=== PATIENT | male | born 1935 | race Caucasian/White ===

== ENCOUNTER 2016-12-13 07:46 | Emergency (ER) | payer MEDICARE, BC ==
[2016-12-13] MEDS ORDERED: HYDROmorphone 2 MG/ML SDV IVPUSH ONE (07:51)
--- NOTE | 2016-12-13 07:59 | EDM.PDOC ---
ED HPI Trauma - General Chief Complaint: Lower Extremity Injury/Pain Stated Complaint: LEFT HIP Time Seen by Provider: 12/13/16 07:50 Source: Reports: Patient, Family History Limitations: Reports: No limitations - History of Present Illness INITIAL COMMENTS - FREE TEXT/NARRATIVE: 81 yo male fell from a standing height this morning injuring his left hip. He was able to get up and walk a short distance with his walker with the assistance of his to a chair. After this he was not able again to move the left leg. Arrives via EMS. No other injuries in this fall. Complains now of left hip pain. Symptom Onset Date: 12/13/16 Symptom Onset Time: 06:00 Occurred When: just prior to arrival, this morning Occurred Where: home Method of Injury: fall Severity: moderate Pain/Injury Location: Reports: lower extremity, left Consciousness: Reports: no loss of consciousness Associated Symptoms: Reports: denies other symptoms Allergies/ADRs: Allergies No Known Allergies Allergy (Verified 12/13/16 08:10) Home Medications: Ambulatory Orders Amoxicillin [Amoxil] 4 cap PO ASDIRECTED 11/13/13 [Confirmed 11/13/13] Aspirin [Ecotrin] 81 mg PO DAILY 11/13/13 [Confirmed 11/13/13] Ciclopirox 1 applic TOP ASDIRECTED 11/13/13 [Confirmed 11/13/13] Hydrochlorothiazide 25 mg PO DAILY 11/13/13 [Confirmed 11/13/13] Ichthammol 1 gm MC ASDIRECTED 11/13/13 [Confirmed 11/13/13] Levothyroxine [Levothroid] 137 mcg PO DAILY 11/13/13 [Confirmed 11/13/13] Multivitamin with Minerals [Multiple Vitamin] 1 tab PO DAILY 11/13/13 [ Confirmed 11/13/13] Propylene Glycol/Peg 400 [Systane 0.3-0.4% Eye Drops] 10 ml EYERT Q4H PRN [Confirmed 11/13/13] amLODIPine Besylate [Amlodipine Besylate] 1 tab PO DAILY 11/13/13 [Confirmed 07/19] Past Medical History HEENT History: Reports: Impaired vision Cardiovascular History: Reports: Hypertension Musculoskeletal History: Reports: Arthritis Endocrine/Metabolic History: Reports: Hypothyroidism Social & Family History - Family History Family Medical History: Noncontributory - Tobacco Use Smoking Status *Q: Never Smoker - Caffeine Use Caffeine Use: Reports: Coffee, Soda, Tea - Recreational Drug Use Recreational Drug Use: No Review of Systems - Review of Systems Review Of Systems: See Below Constitutional: Reports: no symptoms Eyes: Reports: no symptoms Ears: Reports: no symptoms Nose: Reports: no symptoms Mouth/Throat: Reports: other (complains of dry mouth.) Respiratory: Reports: No Symptoms Cardiovascular: Reports: no symptoms GI/Abdominal: Reports: No symptoms Genitourinary: Reports: no symptoms Musculoskeletal: Reports: joint pain (Left hip) Skin: Reports: no symptoms Neurological: Reports: No Symptoms Psychiatric: Reports: no symptoms Trauma Exam - Physical Exam Exam: See Below Exam Limited By: No limitations General Appearance: Reports: alert, WD/WN, no apparent distress Head: Reports: atraumatic, normocephalic Eyes: bilateral eye: normal inspection, PERRL Ears: Reports: normal external exam, normal canal, hearing grossly normal Nose: Reports: normal inspection, normal mucousa, no blood Throat/Mouth: Reports: Normal inspection, Normal lips, Normal teeth, Normal oropharynx, Normal voice, No airway compromise Neck: Reports: non-tender, full range of motion, normal alignment, normal inspection Respiratory Exam: Reports: no respiratory distress, lungs clear, normal breath sounds, no accessory muscle use Cardiovascular: Reports: regular rate, rhythm, no edema GI/Abdominal: Reports: normal bowel sounds, soft, non tender Back: Reports: normal inspection Extremities: Reports: non-tender, pain with movement (Left hip), tenderness, unable to bear weight Neurologic: Reports: prosthetic assistant II-XII nml as tested, no motor/sensory deficits, alert , normal mood/affect, oriented x 3 Skin: Reports: Normal color, Warm/dry Course - Vital Signs Text/Narrative:: LR IV @ 125 ml/h, Dilaudid 0.5 mg IV L hip X-ray-neck fx Dr. Garcia accepting at [place], [place]. EMS transfer. Last Recorded V/S: Last Vital Signs Temp 36.7 C 12/13/16 07:35 Pulse 75 12/13/16 07:35 Resp 16 12/13/16 07:35 BP 173/87 H 12/13/16 07:35 Pulse Ox 100 12/13/16 07:35 - Orders/Labs/Meds Orders: Active Orders 24 hr Category Date Time Status Hip Min 2V or 3V w Pelvis Lt [CR] Stat Exams 12/13/16 07:52 Taken UA W/MICROSCOPIC [URIN] Stat Lab 12/13/16 08:54 Uncollected Lactated Ringers [Ringers, Lactated] 1,000 ml Med 12/13/16 08:00 Active IV ASDIRECTED Medication Orders Lactated Ringer's (Ringers, Lactated) 1,000 mls @ 125 mls/hr IV ASDIRECTED JONI Meds: Medications Generic Name Dose Route Start Last Admin Trade Name Freq PRN Reason Stop Dose Admin Lactated Ringer's 1,000 mls @ 125 mls/hr 12/13/16 08:00 Ringers, Lactated IV ASDIRECTED JONI Discontinued Medications Generic Name Dose Route Start Last Admin Trade Name Freq PRN Reason Stop Dose Admin Hydromorphone HCl 0.5 mg 12/13/16 07:51 12/13/16 08:21 Dilaudid IVPUSH 12/13/16 07:52 0.5 mg ONETIME ONE Administration Departure - Departure Time of Disposition: 09:20 Disposition: DC/Tfer to Acute Hospital 02 Condition: good Clinical Impression: Fracture of neck of femur, hip Hypertension Qualifiers: Hypertension type: essential hypertension Qualified Code(s): I10 - Essential ( primary) hypertension Referrals: Tobias Smith MD [Primary Care Provider] - Forms: ED Department Discharge - My Orders Last 24 Hours: My Active Orders 12/13/16 07:52 Hip Min 2V or 3V w Pelvis Lt [CR] Stat 12/13/16 08:00 Lactated Ringers [Ringers, Lactated] 1,000 ml IV ASDIRECTED 12/13/16 08:54 UA W/MICROSCOPIC [URIN] Stat - Assessment/Plan Last 24 Hours: My Active Orders 12/13/16 07:52 Hip Min 2V or 3V w Pelvis Lt [CR] Stat 12/13/16 08:00 Lactated Ringers [Ringers, Lactated] 1,000 ml IV ASDIRECTED 12/13/16 08:54 UA W/MICROSCOPIC [URIN] Stat
[2016-12-13] MEDS ORDERED: Lactated Ringers 1,000 ML IV SCH (08:00)
[2016-12-13 10:40] VITALS: BP 156/72
--- NOTE | 2016-12-13 16:30 | CR ---
INDICATION: Fell with pain. LEFT HIP WITH PELVIS: Frontal view of the pelvis with AP and two lateral views of the left hip revealed a comminuted fracture of the femoral neck with anterior angulation of mild to moderate degree at the fracture site. Somewhat diminished bone density is noted which may be on the basis of osteomalacia or osteoporosis and should be correlated clinically. The left hip joint itself was intact in appearance. The right hip joint showed some mild degenerative changes and minimal cranial lateral joint space loss. Mild degenerative changes are also noted at the right sacroiliac joint, minimal on the left. IMPRESSION: 1. Femoral neck fracture on the left with mild to moderate deformity. 2. Minimal degenerative changes right hip joint. MTDD
== END 2016-12-13 09:35 ==
LOC: FB.ED 07:46
DX: S72.002A Fracture of unspecified part of neck of left femur, initial encounter for closed fracture (principal); I10 Essential (primary) hypertension; E03.9 Hypothyroidism, unspecified; Z79.82 Long term (current) use of aspirin; Z79.899 Other long term (current) drug therapy; W18.30XA Fall on same level, unspecified, initial encounter
CPT/HCPCS: 73502; 81001; 96361; 96374; 99284; J1170; J7120; 99285

== ENCOUNTER 2016-12-16 07:55 | Inpatient (IN) | payer MEDICARE, BC ==
[2016-12-16] MEDS ORDERED: Polyethylene Glycol 3350 Powder 17 GM Packet PO PRN (18:25)
[2016-12-16] MEDS ORDERED: Amoxicillin 500 MG Cap PO PRN (18:25)
[2016-12-16] MEDS ORDERED: oxyCODONE 5 MG Tab PO PRN (18:25)
--- NOTE | 2016-12-16 18:39 | PCM.HP ---
H&P History of Present Illness - General Date of Service: 12/16/16 Admit Problem/Dx: Admission Diagnosis/Problem Admission Diagnosis/Problem Weakness of limb Source of Information: Patient, Old records History Limitations: Reports: No limitations - History of Present Illness Initial Comments - Free Text/Narative: Admit: 12/16/2016 81 y male transferred to [facility] from [facility] after left hip hemiarthroplasty 12/13/2016 due to fracture. no post op complications and deemed appropriate to work on pt/ot for transition to home. he has no complaints and is from the area. review of symptoms only positive for expected left hip stiffness and decreased ROM. denies when asked Pain Score (Numeric/FACES): 0 - Related Data Allergies/Adverse Reactions: Allergies Allergy/AdvReac Type Severity Reaction Status Date / Time No Known Allergies Allergy Verified 12/13/16 08:10 Home Medications: Home Meds Levothyroxine [Levothroid] 137 mcg PO DAILY 11/13/13 [History] Multivitamin with Minerals [Multiple Vitamin] 1 tab PO DAILY 11/13/13 [History] Propylene Glycol/Peg 400 [Systane 0.3-0.4% Eye Drops] 1 drop EYEBOTH QID [History] amLODIPine Besylate [Amlodipine Besylate] 5 mg PO DAILY 11/13/13 [History] Acetaminophen/oxyCODONE [Percocet 325-5 MG] 1 tab PO Q4H PRN 12/16/16 [History] Amitriptyline [Elavil] 10 mg PO BEDTIME 12/16/16 [History] Amoxicillin 2,000 mg PO ASDIRECTED PRN 12/16/16 [History] Biotin 5 mg PO DAILY 12/16/16 [History] Calcium Carbonate [Calcium] 500 mg PO WITHBREAKFAST 12/16/16 [History] Cholecalciferol (Vitamin D3) [Vitamin D3] 1,000 unit PO DAILY 12/16/16 [History] Enoxaparin Sodium [Lovenox] 40 mg SUBCUT DAILY 12/16/16 [History] Polyethylene Glycol 3350 [MiraLAX] 17 gm PO DAILY PRN 12/16/16 [History] Sennosides/Docusate Sodium [Senna S Tablet] 1 tab PO BID PRN 12/16/16 [History] oxyCODONE 10 mg PO Q6H PRN 12/16/16 [History] Past Medical History HEENT History: Reports: Cataract, Impaired vision Cardiovascular History: Reports: Hypertension Respiratory History: Reports: Pneumonia, recurrent, Other (see below) Other Respiratory History: not recurrent Musculoskeletal History: Reports: Arthritis Neurological History: Reports: Brain injury, Head trauma, Vertigo, Other (see below) Other Neuro History: July 2016 Endocrine/Metabolic History: Reports: Hypothyroidism, Obesity/BMI 30+ - Past Surgical History HEENT Surgical History: Reports: Cataract surgery Cardiovascular Surgical History: Reports: None GI Surgical History: Reports: Cholecystectomy Other GI Surgeries/Procedures: 1999 Neurological Surgical History: Reports: None Musculoskeletal Surgical History: Reports: Knee replacement, Other (see below) Other Musculoskeletal Surgeries/Procedures:: bilateral knee replacement 2010 Social & Family History - Family History Family Medical History: Noncontributory - Tobacco Use Smoking Status *Q: Never Smoker Second Hand Smoke Exposure: No - Caffeine Use Caffeine Use: Reports: Coffee Other Caffeine Use: 3 cups a day; - Recreational Drug Use Recreational Drug Use: No - Living Situation & Occupation Living situation: Reports: Social History Comment: comes from home. H&P Review of Systems - Review of Systems: Review Of Systems: ROS reveals no pertinent complaints other than HPI. Exam - Exam Exam: See Below - Vital Signs Vital Signs: Last Vital Signs Temp 98.3 F 12/16/16 16:50 Pulse 81 12/16/16 16:50 Resp 18 12/16/16 16:50 BP 129/59 L 12/16/16 16:50 Pulse Ox 96 12/16/16 16:50 Weight: 92.76 kg - Exam Quality Assessment: DVT prophylaxis General: alert, oriented, cooperative Lungs: Clear to auscultation Cardiovascular: regular rate, regular rhythm Abdomen: normal bowel sounds Back Exam: normal inspection Extremities: normal pulses, other (left hip incision intact and healthy. 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 Status: Acute Priority: High Current Visit: Yes Problem List Initiated/Reviewed/Updated: Yes Orders Last 24hrs: Active Orders 24 hr Category Date Time Status Patient Status [ADT] Routine ADT 12/16/16 17:00 Ordered Ambulate [RC] ASDIRECTED Care 12/16/16 18:16 Ordered Oxygen Therapy [RC] PRN Care 12/16/16 18:16 Ordered VTE/DVT Education [RC] Per Unit Routine Care 12/16/16 18:16 Ordered Vital Signs [RC] PER UNIT ROUTINE Care 12/16/16 18:16 Ordered OT Evaluation and Treatment [CONS] Routine Cons 12/16/16 18:16 Ordered PT Evaluation and Treatment [CONS] Routine Cons 12/16/16 18:16 Ordered 2 Gram Sodium Diet [DIET] Diet 12/16/16 Breakfast Ordered Acetaminophen/oxyCODONE [Percocet 325-5 MG] Med 12/16/16 18:25 Ordered 1 tab PO Q4H PRN Amitriptyline [Elavil] Med 12/16/16 21:00 Ordered 10 mg PO BEDTIME Amoxicillin [Amoxil] Med 12/16/16 18:25 Ordered 2,000 mg PO ASDIRECTED PRN Biotin [Meribin] Med 12/17/16 09:00 Ordered 5 mg PO DAILY Calcium Carbonate [Calcium] Med 12/17/16 08:00 Ordered 500 mg PO WITHBREAKFAST Cholecalciferol (Vitamin D3) [Vitamin D3] Med 12/17/16 09:00 Ordered 1,000 units PO DAILY Docusate Sodium/Sennosides [Senna Plus] Med 12/16/16 18:25 Ordered 1 tab PO BID PRN Enoxaparin [Lovenox] Med 12/17/16 09:00 Ordered 40 mg SUBCUT DAILY Levothyroxine [Levothroid] Med 12/17/16 09:00 Ordered 137 mcg PO DAILY Multivitamin with Minerals [Multiple Vitamin] Med 12/17/16 09:00 Ordered 1 tab PO DAILY PEG 400/Propylene Glycol [Systane Lubricant] Med 12/16/16 21:00 Ordered 1 drop EYEBOTH QID Polyethylene Glycol 3350 [MiraLAX] Med 12/16/16 18:25 Ordered 17 gm PO DAILY PRN amLODIPine [Norvasc] Med 12/17/16 09:00 Ordered 5 mg PO DAILY oxyCODONE Med 12/16/16 18:25 Ordered 10 mg PO Q6H PRN Resuscitation Status Routine Resus Stat 12/16/16 18:16 Ordered Medication Orders Amitriptyline HCl (Elavil) 10 mg PO BEDTIME JONI Amlodipine Besylate (Norvasc) 5 mg PO DAILY JONI Amoxicillin (Amoxil) 2,000 mg PO ASDIRECTED PRN PRN Reason: DENTAL APPT Biotin (Meribin) 5 mg PO DAILY [facility] Cholecalciferol (Vitamin D3) 1,000 units PO DAILY [facility] Enoxaparin Sodium (Lovenox) 40 mg SUBCUT DAILY [facility] Levothyroxine Sodium (Levothroid) 137 mcg PO DAILY [facility] Non-Formulary Medication (Calcium Carbonate [Calcium]) 500 mg PO WITHBREAKFAST [facility] Non-Formulary Medication (Multivitamin With Minerals [Multiple Vitamin]) 1 tab PO DAILY [facility] Oxycodone HCl (Oxycodone) 10 mg PO Q6H PRN PRN Reason: SEVERE PAIN Oxycodone/Acetaminophen (Percocet 325-5 Mg) 1 tab PO Q4H PRN PRN Reason: MODERATE PAIN Polyethylene Glycol (Miralax) 17 gm PO DAILY PRN PRN Reason: Constipation Propylene Glycol (Systane Lubricant) ml EYEBOTH QID [facility] Senna/Docusate Sodium (Senna Plus) 1 tab PO BID PRN PRN Reason: Constipation Assessment/Plan Comment:: transferred here for strengthening and ADLs with wound cares. anticoag monitoring along with home meds for chronic comorbidities. short stay anticipated. follow up appt in [place] already scheduled.
[2016-12-16] MEDS: Amitriptyline 10 MG Tab PO SCH (20:33)
[2016-12-16] MEDS: PEG 400/Propylene Glycol Ophth Soln 15 ML Bottle EYEBOTH SCH (20:34)
[2016-12-16] MEDS: Acetaminophen/oxyCODONE 325-5 MG Tab PO PRN (20:34)
[2016-12-17] MEDS: Enoxaparin 40 MG/0.4 ML Syringe SUBCUT SCH (09:23)
[2016-12-17] MEDS: Biotin 5 MG Cap PO SCH (09:24)
[2016-12-17] MEDS: amLODIPine 5 MG Tab PO SCH (09:24)
[2016-12-17] MEDS: Calcium Carbonate 500 MG Tab.Chew PO SCH (09:24)
[2016-12-17] MEDS: PEG 400/Propylene Glycol Ophth Soln 15 ML Bottle EYEBOTH SCH ×4 (09:25→20:06)
[2016-12-17] MEDS: Cholecalciferol (Vitamin D3) 1,000 Unit Tab PO SCH (09:25)
[2016-12-17] MEDS: Multivitamins, Therapeutic with Minerals Tab PO SCH (09:25)
[2016-12-17] MEDS: Acetaminophen/oxyCODONE 325-5 MG Tab PO PRN ×2 (09:32→21:30)
[2016-12-17] MEDS: Amitriptyline 10 MG Tab PO SCH (20:06)
[2016-12-18] MEDS: Enoxaparin 40 MG/0.4 ML Syringe SUBCUT SCH (09:12)
[2016-12-18] MEDS: amLODIPine 5 MG Tab PO SCH (09:13)
[2016-12-18] MEDS: PEG 400/Propylene Glycol Ophth Soln 15 ML Bottle EYEBOTH SCH ×4 (09:13→20:30)
[2016-12-18] MEDS: Cholecalciferol (Vitamin D3) 1,000 Unit Tab PO SCH (09:13)
[2016-12-18] MEDS: Biotin 5 MG Cap PO SCH (09:13)
[2016-12-18] MEDS: Calcium Carbonate 500 MG Tab.Chew PO SCH (09:14)
[2016-12-18] MEDS: Multivitamins, Therapeutic with Minerals Tab PO SCH (09:15)
[2016-12-18] MEDS: Acetaminophen/oxyCODONE 325-5 MG Tab PO PRN ×2 (11:35→20:29)
[2016-12-18] MEDS: Amitriptyline 10 MG Tab PO SCH (20:29)
[2016-12-19] MEDS: Enoxaparin 40 MG/0.4 ML Syringe SUBCUT SCH (09:45)
[2016-12-19] MEDS: Multivitamins, Therapeutic with Minerals Tab PO SCH (09:46)
[2016-12-19] MEDS: Cholecalciferol (Vitamin D3) 1,000 Unit Tab PO SCH (09:46)
[2016-12-19] MEDS: Biotin 5 MG Cap PO SCH (09:46)
[2016-12-19] MEDS: amLODIPine 5 MG Tab PO SCH (09:47)
[2016-12-19] MEDS: PEG 400/Propylene Glycol Ophth Soln 15 ML Bottle EYEBOTH SCH ×4 (09:49→21:15)
[2016-12-19] MEDS: Calcium Carbonate 500 MG Tab.Chew PO SCH (09:49)
[2016-12-19] MEDS: Acetaminophen/oxyCODONE 325-5 MG Tab PO PRN ×2 (12:25→21:13)
[2016-12-19] MEDS: Amitriptyline 10 MG Tab PO SCH (21:15)
[2016-12-20] MEDS: Biotin 5 MG Cap PO SCH (09:32)
[2016-12-20] MEDS: amLODIPine 5 MG Tab PO SCH (09:32)
[2016-12-20] MEDS: Calcium Carbonate 500 MG Tab.Chew PO SCH (09:32)
[2016-12-20] MEDS: Enoxaparin 40 MG/0.4 ML Syringe SUBCUT SCH (09:32)
[2016-12-20] MEDS: Multivitamins, Therapeutic with Minerals Tab PO SCH (09:32)
[2016-12-20] MEDS: Cholecalciferol (Vitamin D3) 1,000 Unit Tab PO SCH (09:32)
[2016-12-20] MEDS: PEG 400/Propylene Glycol Ophth Soln 15 ML Bottle EYEBOTH SCH ×4 (09:33→21:18)
[2016-12-20] MEDS: Acetaminophen/oxyCODONE 325-5 MG Tab PO PRN ×2 (10:32→21:18)
[2016-12-20] MEDS: Amitriptyline 10 MG Tab PO SCH (21:17)
[2016-12-21] MEDS: Biotin 5 MG Cap PO SCH (08:05)
[2016-12-21] MEDS: amLODIPine 5 MG Tab PO SCH (08:06)
[2016-12-21] MEDS: Calcium Carbonate 500 MG Tab.Chew PO SCH (08:08)
[2016-12-21] MEDS: PEG 400/Propylene Glycol Ophth Soln 15 ML Bottle EYEBOTH SCH ×4 (08:08→21:09)
[2016-12-21] MEDS: Multivitamins, Therapeutic with Minerals Tab PO SCH (08:09)
[2016-12-21] MEDS: Cholecalciferol (Vitamin D3) 1,000 Unit Tab PO SCH (08:09)
[2016-12-21] MEDS: Enoxaparin 40 MG/0.4 ML Syringe SUBCUT SCH (08:10)
[2016-12-21] MEDS: Acetaminophen/oxyCODONE 325-5 MG Tab PO PRN (12:01)
[2016-12-21] MEDS: Amitriptyline 10 MG Tab PO SCH (21:08)
[2016-12-22] MEDS: Acetaminophen/oxyCODONE 325-5 MG Tab PO PRN (01:43)
[2016-12-22] MEDS: Biotin 5 MG Cap PO SCH (08:24)
[2016-12-22] MEDS: amLODIPine 5 MG Tab PO SCH (08:24)
[2016-12-22] MEDS: Calcium Carbonate 500 MG Tab.Chew PO SCH (08:25)
[2016-12-22] MEDS: PEG 400/Propylene Glycol Ophth Soln 15 ML Bottle EYEBOTH SCH ×4 (08:25→20:15)
[2016-12-22] MEDS: Cholecalciferol (Vitamin D3) 1,000 Unit Tab PO SCH (08:25)
[2016-12-22] MEDS: Multivitamins, Therapeutic with Minerals Tab PO SCH (08:26)
[2016-12-22] MEDS: Enoxaparin 40 MG/0.4 ML Syringe SUBCUT SCH (08:27)
[2016-12-22] MEDS: Amitriptyline 10 MG Tab PO SCH (20:15)
[2016-12-23] MEDS: Enoxaparin 40 MG/0.4 ML Syringe SUBCUT SCH (09:13)
[2016-12-23] MEDS: Multivitamins, Therapeutic with Minerals Tab PO SCH (09:14)
[2016-12-23] MEDS: PEG 400/Propylene Glycol Ophth Soln 15 ML Bottle EYEBOTH SCH ×2 (09:14→16:09)
[2016-12-23] MEDS: amLODIPine 5 MG Tab PO SCH (09:14)
[2016-12-23] MEDS: Calcium Carbonate 500 MG Tab.Chew PO SCH (09:14)
[2016-12-23] MEDS: Biotin 5 MG Cap PO SCH (09:14)
[2016-12-23] MEDS: Cholecalciferol (Vitamin D3) 1,000 Unit Tab PO SCH (09:14)
[2016-12-23 11:12] VITALS: BP 120/56
--- NOTE | 2016-12-23 11:58 | PN ---
DATE SEEN: 12/23/2016 REASON FOR VISIT: Hip replacement. HISTORY OF PRESENT ILLNESS: Mr. Zafar is a 81-year-old male, who was admitted on the from [place] after undergoing hemiarthroplasty on the . He has had no complications. He has attended physical therapy. He is in no pain and is ready to go home today. REVIEW OF SYSTEMS: No fever, no swelling, chills, chest pain, or shortness of breath. PHYSICAL EXAMINATION: GENERAL: He is not in distress. Blood pressure and temperature within reference range. VITAL SIGNS: Temperature is 97.8, blood pressure 116/52. ENT: Negative. MENTAL STATUS: Alert. CARDIOVASCULAR: Normal. NEUROLOGIC: Normal. MUSCULOSKELETAL: Walking with a walker. LABORATORY DATA: No new labs. IMPRESSION: Status post left hip arthroplasty. PLAN: My plan is to discharge him home. Follow up in the clinic per previous appointments. He will need home health, because he still needs physical and occupation therapy along with senior care care and medications, Lovenox. /[id number] BARRERA/GEOVANNY
--- NOTE | 2016-12-24 01:08 | DISCH ---
DISCHARGE DATE: 12/23/2016 REASON FOR ADMISSION: Status post left hip arthroplasty. DISCHARGE DIAGNOSIS: Status post left hip arthroplasty. BRIEF HISTORY AND HOSPITAL COURSE: This is a 81-year-old male who fell, had surgery on the 10th, left hip arthroplasty was here, admitted for rehabilitation and he has been going through physical therapy. He was in swing bed. He is ready to go home today, complains of no pain. DISCHARGE MEDICATIONS: 1. Lovenox 40 mg subcutaneously daily for a total of 90 days. 2. He will also go home on amitriptyline 10 mg at bedtime. 3. Amlodipine 5 mg daily. 4. MiraLAX 17 g p.r.n. 5. Levothyroxine 137 mcg daily. FOLLOWUP: He will be seen by the home health nurse for physical and occupational therapy and is going home with home health agency. For further follow up, he will be seen in the office next week. Please note that I spent more than 35 minutes in the discharge of the patient. /[id number] BARRERA/GEOVANNY
== END 2016-12-23 14:22 | disposition home health service (06) | DRG 948 ==
LOC: FB.MS 15:54
PROVIDERS: ADMIT Family Medicine; ATTEND Family Medicine
DX: R53.1 Weakness (principal); Z98.890 Other specified postprocedural states; I10 Essential (primary) hypertension; E03.9 Hypothyroidism, unspecified; M19.90 Unspecified osteoarthritis, unspecified site; Z87.01 Personal history of pneumonia (recurrent); H54.7 Unspecified visual loss; Z96.653 Presence of artificial knee joint, bilateral; E66.9 Obesity, unspecified; Z68.30 Body mass index [BMI] 30.0-30.9, adult
CPT/HCPCS: 97110-GP; 97112-GP; 97116-GP; 97162-GP; 97166-GO; 97530-GO; 97530-GO-KX; 97530-GP; 97535-GO; A9270; A9270-GY; J1650

== ENCOUNTER 2022-12-16 12:15 | Emergency (ER) | payer BC, MEDICARE ==
[2022-12-16] MEDS: Acetaminophen 500 MG Tab PO ONE (12:43)
[2022-12-16] MEDS ORDERED: Sodium Chloride 0.9% 10 ML Syringe FLUSH PRN (14:27)
[2022-12-16 14:31] VITALS: BP 152/68; PULSE 75
[2022-12-16 15:20] LABS: ESTIMATED GFR 84 mL/min (>60)
== END 2022-12-16 15:58 ==
LOC: FB.ED 12:15
DX: S72.001A Fracture of unspecified part of neck of right femur, initial encounter for closed fracture (principal); I10 Essential (primary) hypertension; E03.9 Hypothyroidism, unspecified; E66.9 Obesity, unspecified; Z68.30 Body mass index [BMI] 30.0-30.9, adult; W01.0XXA Fall on same level from slipping, tripping and stumbling without subsequent striking against object, initial encounter
CPT/HCPCS: 36415; 73502-RT; 80053; 85025; 85610; 85730; 99285; A9270-GY

== ENCOUNTER 2022-12-20 10:41 | Inpatient (IN) | payer MEDICARE ==
[2022-12-20] MEDS ORDERED: Bisacodyl 10 MG Supp RECTAL PRN (15:16)
[2022-12-20] MEDS: Ibuprofen 200 MG Tab PO SCH ×2 (17:27→21:32)
[2022-12-20] MEDS: Acetaminophen 500 MG Tab PO SCH ×2 (17:28→21:32)
[2022-12-20] MEDS: Calcium Carbonate 500 MG Tablet PO SCH (21:31)
[2022-12-20] MEDS: Amitriptyline 10 MG Tab PO SCH (21:31)
[2022-12-20] MEDS: Carboxymethylcellulose Sodium 0.5% Ophth Soln 15 ML Bottle EYEBOTH PRN (21:39)
[2022-12-21] MEDS: Levothyroxine 125 MCG Tab PO SCH (05:15)
[2022-12-21] MEDS: Enoxaparin 40 MG/0.4 ML Syringe SUBCUT SCH (08:34)
[2022-12-21] MEDS: Ibuprofen 200 MG Tab PO SCH ×4 (08:34→20:41)
[2022-12-21] MEDS: Cholecalciferol (Vitamin D3) 25 MCG Tab PO SCH (08:34)
[2022-12-21] MEDS: Acetaminophen 500 MG Tab PO SCH ×4 (08:35→20:41)
[2022-12-21] MEDS: amLODIPine 5 MG Tab PO SCH (08:35)
[2022-12-21] MEDS: Polyethylene Glycol 3350 Powder 17 GM Packet PO SCH (08:35)
[2022-12-21] MEDS: Calcium Carbonate 500 MG Tablet PO SCH ×2 (08:35→20:42)
[2022-12-21] MEDS: Amitriptyline 10 MG Tab PO SCH (20:42)
[2022-12-21] MEDS: Carboxymethylcellulose Sodium 0.5% Ophth Soln 15 ML Bottle EYEBOTH PRN (21:21)
[2022-12-22] MEDS: oxyCODONE 5 MG Tab PO PRN (00:23)
[2022-12-22] MEDS: Levothyroxine 125 MCG Tab PO SCH (06:37)
[2022-12-22] MEDS: Acetaminophen 500 MG Tab PO SCH ×4 (08:18→20:46)
[2022-12-22] MEDS: Ibuprofen 200 MG Tab PO SCH ×4 (08:19→20:45)
[2022-12-22] MEDS: Polyethylene Glycol 3350 Powder 17 GM Packet PO SCH (08:20)
[2022-12-22] MEDS: amLODIPine 5 MG Tab PO SCH (08:20)
[2022-12-22] MEDS: Enoxaparin 40 MG/0.4 ML Syringe SUBCUT SCH (08:20)
[2022-12-22] MEDS: Calcium Carbonate 500 MG Tablet PO SCH ×2 (08:20→20:45)
[2022-12-22] MEDS: Cholecalciferol (Vitamin D3) 25 MCG Tab PO SCH (08:21)
[2022-12-22] MEDS: Carboxymethylcellulose Sodium 0.5% Ophth Soln 15 ML Bottle EYEBOTH PRN ×2 (08:53→20:49)
[2022-12-22] MEDS: Amitriptyline 10 MG Tab PO SCH (20:45)
[2022-12-23] MEDS: oxyCODONE 5 MG Tab PO PRN ×2 (01:17→20:45)
[2022-12-23] MEDS: Levothyroxine 125 MCG Tab PO SCH (06:09)
[2022-12-23] MEDS: Enoxaparin 40 MG/0.4 ML Syringe SUBCUT SCH (09:29)
[2022-12-23] MEDS: Polyethylene Glycol 3350 Powder 17 GM Packet PO SCH (09:30)
[2022-12-23] MEDS: Ibuprofen 200 MG Tab PO SCH ×4 (09:30→20:40)
[2022-12-23] MEDS: Cholecalciferol (Vitamin D3) 25 MCG Tab PO SCH (09:32)
[2022-12-23] MEDS: Acetaminophen 500 MG Tab PO SCH ×4 (09:32→20:44)
[2022-12-23] MEDS: Calcium Carbonate 500 MG Tablet PO SCH ×2 (09:33→20:43)
[2022-12-23] MEDS: amLODIPine 5 MG Tab PO SCH (09:36)
[2022-12-23] MEDS: Amitriptyline 10 MG Tab PO SCH (20:43)
[2022-12-24] MEDS: oxyCODONE 5 MG Tab PO PRN (03:41)
[2022-12-24] MEDS: Levothyroxine 125 MCG Tab PO SCH (06:02)
[2022-12-24 06:56] VITALS: PULSE 67
[2022-12-24] MEDS: Acetaminophen 500 MG Tab PO SCH (08:26)
[2022-12-24] MEDS: Polyethylene Glycol 3350 Powder 17 GM Packet PO SCH (08:26)
[2022-12-24] MEDS: Enoxaparin 40 MG/0.4 ML Syringe SUBCUT SCH (08:26)
[2022-12-24] MEDS: Ibuprofen 200 MG Tab PO SCH (08:27)
[2022-12-24] MEDS: Cholecalciferol (Vitamin D3) 25 MCG Tab PO SCH (08:28)
[2022-12-24] MEDS: Calcium Carbonate 500 MG Tablet PO SCH (08:28)
[2022-12-24] MEDS: amLODIPine 5 MG Tab PO SCH (08:28)
[2022-12-24 14:51] VITALS: BP 152/63
== END 2022-12-24 13:45 | disposition home health service (06) | DRG 561 ==
LOC: FB.MS 14:13
PROVIDERS: ADMIT Family Medicine; ATTEND Family Medicine
DX: Z47.1 Aftercare following joint replacement surgery (principal); E03.9 Hypothyroidism, unspecified; E66.9 Obesity, unspecified; I10 Essential (primary) hypertension; Z96.659 Presence of unspecified artificial knee joint; H90.3 Sensorineural hearing loss, bilateral; Z96.698 Presence of other orthopedic joint implants; D50.0 Iron deficiency anemia secondary to blood loss (chronic); M81.0 Age-related osteoporosis without current pathological fracture; Z96.643 Presence of artificial hip joint, bilateral; Z79.899 Other long term (current) drug therapy; S72.001D Fracture of unspecified part of neck of right femur, subsequent encounter for closed fracture with routine healing; Z79.1 Long term (current) use of non-steroidal anti-inflammatories (NSAID); Z79.890 Hormone replacement therapy; Z87.01 Personal history of pneumonia (recurrent); Z98.42 Cataract extraction status, left eye; Z98.41 Cataract extraction status, right eye; Z85.46 Personal history of malignant neoplasm of prostate; Z68.32 Body mass index [BMI] 32.0-32.9, adult; Z87.820 Personal history of traumatic brain injury; Z97.3 Presence of spectacles and contact lenses; Z90.49 Acquired absence of other specified parts of digestive tract; W18.30XD Fall on same level, unspecified, subsequent encounter
CPT/HCPCS: 94150; 97110-GP; 97116-GP; 97161-GP; 97165-GO; 97530-GO; 97530-GP; 97535-GO; 99305; 99315; A9270-GY; J1650

== ENCOUNTER 2024-10-04 15:04 | Observation (INO) | payer MEDICARE ==
[2024-10-04] MEDS: HYDROmorphone 2 MG/ML SDV IM ONE (15:39)
[2024-10-04] MEDS: methylPREDNISolone Sodium Succinate 125 MG/2 ML SDV IM ONE (15:40)
[2024-10-04] MEDS ORDERED: HYDROmorphone 2 MG Tab PO PRN (17:26)
[2024-10-04] MEDS: Acetaminophen 325 MG Tab PO PRN (21:13)
[2024-10-04] MEDS: tiZANidine 4 MG Tab PO PRN (21:13)
[2024-10-05] MEDS: Levothyroxine 125 MCG Tab PO SCH (05:41)
[2024-10-05 08:27] VITALS: BP 138/60; PULSE 68
[2024-10-05] MEDS ORDERED: Carboxymethylcellulose Sodium 0.5% Ophth Soln 15 ML Bottle EYEBOTH PRN (10:08)
[2024-10-05] MEDS ORDERED: Non-Formulary Medication 1 Each (Docusate Sodium [Docusate Sodium] 283 MG/5 ML Enema) RECTAL PRN (10:08)
[2024-10-05] MEDS ORDERED: Bisacodyl 10 MG Supp RECTAL PRN (10:08)
[2024-10-05] MEDS ORDERED: Naloxone 0.4 MG/ML SDV IVPUSH PRN (10:20)
[2024-10-05] MEDS ORDERED: HYDROmorphone 2 MG/ML SDV IVPUSH PRN (10:20)
[2024-10-05] MEDS: Cholecalciferol (Vitamin D3) 25 MCG Tab PO SCH (10:49)
[2024-10-05] MEDS: Sennosides/Docusate Sodium 50-8.6 MG Tab PO SCH (10:49)
[2024-10-05] MEDS: amLODIPine 5 MG Tab PO SCH (10:49)
[2024-10-05] MEDS: Fish Oil/Omega-3 Fatty Acids 1 Gm Cap PO SCH (10:50)
[2024-10-05] MEDS: Polyethylene Glycol 3350 Powder 17 GM Packet PO SCH (10:51)
[2024-10-05] MEDS: Lidocaine 4% 1 each Patch TOP SCH (10:54)
[2024-10-05] MEDS: Acetaminophen/HYDROcodone 325-5 MG Tab PO PRN (12:51)
[2024-10-05] MEDS ORDERED: LIDOCAINE PATCH TRDERM SCH (21:00)
[2024-10-05] MEDS ORDERED: Amitriptyline 10 MG Tab PO SCH (21:00)
[2024-10-05] MEDS ORDERED: Calcium Carbonate 500 MG Tablet PO SCH (21:00)
== END 2024-10-05 15:00 | disposition swing bed (61) ==
LOC: FB.ED 15:04 → FB.MS 17:33
PROVIDERS: ADMIT Family Medicine; ATTEND Internal Medicine
DX: S32.10XA Unspecified fracture of sacrum, initial encounter for closed fracture (principal); M48.00 Spinal stenosis, site unspecified; M19.90 Unspecified osteoarthritis, unspecified site
CPT/HCPCS: 96372; 97161; 97165; 99284; A9270; G0378; J1171; J2919; 99222; 99238

== ENCOUNTER 2024-10-05 15:10 | Inpatient (IN) | payer MEDICARE ==
[2024-10-05] MEDS ORDERED: Non-Formulary Medication 1 Each (Docusate Sodium [Docusate Sodium] 283 MG/5 ML Enema) RECTAL PRN (15:27)
[2024-10-05] MEDS ORDERED: Bisacodyl 10 MG Supp RECTAL PRN (15:27)
[2024-10-05] MEDS: Acetaminophen 325 MG Tab PO PRN (15:47)
[2024-10-05] MEDS: Amitriptyline 10 MG Tab PO SCH (20:41)
[2024-10-05] MEDS: Sennosides/Docusate Sodium 50-8.6 MG Tab PO SCH (20:41)
[2024-10-05] MEDS: Calcium Carbonate 500 MG Tablet PO SCH (20:41)
[2024-10-05] MEDS: Polyethylene Glycol 3350 Powder 17 GM Packet PO SCH (20:42)
[2024-10-05] MEDS: LIDOCAINE PATCH TRDERM SCH (20:46)
[2024-10-05] MEDS: Acetaminophen/HYDROcodone 325-5 MG Tab PO PRN (21:04)
[2024-10-06] MEDS: Melatonin 3 MG Tab PO PRN (01:08)
[2024-10-06] MEDS: Levothyroxine 125 MCG Tab PO SCH (05:22)
[2024-10-06] MEDS: Lidocaine 4% 1 each Patch TOP SCH (08:11)
[2024-10-06] MEDS: Fish Oil/Omega-3 Fatty Acids 1 Gm Cap PO SCH (08:12)
[2024-10-06] MEDS: Cholecalciferol (Vitamin D3) 25 MCG Tab PO SCH (08:12)
[2024-10-06] MEDS: amLODIPine 5 MG Tab PO SCH (08:15)
[2024-10-06] MEDS: tiZANidine 4 MG Tab PO PRN (09:36)
[2024-10-07] MEDS: Acetaminophen 325 MG Tab PO SCH (10:20)
[2024-10-07] MEDS: Carboxymethylcellulose Sodium 0.5% Ophth Soln 15 ML Bottle EYEBOTH PRN (13:58)
[2024-10-09] MEDS: Carboxymethylcellulose Sodium 0.5% Ophth Soln 15 ML Bottle EYEBOTH PRN (02:00)
[2024-10-09] MEDS: Acetaminophen 325 MG Tab PO SCH (12:09)
[2024-10-09] MEDS: Carboxymethylcellulose Sodium 0.5% Ophth Soln 15 ML Bottle EYEBOTH SCH (16:19)
[2024-10-11] MEDS: Melatonin 3 MG Tab PO PRN (21:47)
[2024-10-15] MEDS: Melatonin 3 MG Tab PO SCH (22:03)
[2024-10-18 15:42] VITALS: BP 137/70; PULSE 64
== END 2024-10-18 14:10 | disposition home or self-care (01) | DRG 561 ==
LOC: FB.MS 15:10
PROVIDERS: ADMIT Internal Medicine; ATTEND Family Medicine
DX: S32.10XD Unspecified fracture of sacrum, subsequent encounter for fracture with routine healing (principal); M48.061 Spinal stenosis, lumbar region without neurogenic claudication; E03.9 Hypothyroidism, unspecified; E66.9 Obesity, unspecified; I10 Essential (primary) hypertension; Z96.649 Presence of unspecified artificial hip joint; H54.7 Unspecified visual loss; M19.91 Primary osteoarthritis, unspecified site; X58.XXXD Exposure to other specified factors, subsequent encounter; Z79.899 Other long term (current) drug therapy; Z79.2 Long term (current) use of antibiotics; Z68.29 Body mass index [BMI] 29.0-29.9, adult; Z98.49 Cataract extraction status, unspecified eye; Z90.49 Acquired absence of other specified parts of digestive tract
CPT/HCPCS: 73502-RT; 97110-GP; 97530-GO; 97530-GP; 97535-GO; 99305; 99307; 99315; A9270-GY